=== PATIENT | male | born 1970 | race Caucasian/White ===

== ENCOUNTER 2017-08-14 11:33 | Emergency (ER) | payer OTHER ==
[~2017-08-14] VITALS: Ht 172.7 cm; Wt 95.3 kg
[2017-08-14 12:06] VITALS: BP 140/105
--- NOTE | 2017-08-14 15:02 | RADIOLOGY REPORT ---
EXAMINATION: XR WRIST, RIGHT CLINICAL INFORMATION: Right wrist injury. COMPARISON: None TECHNIQUE: PA, lateral, and oblique views of the right wrist. FINDINGS: No acute fracture or dislocation is seen. The carpal bones are normal anatomic alignment. No soft tissue abnormality is visible. IMPRESSION: No acute radiographic abnormality of the right wrist.
--- NOTE | 2017-08-14 15:15 | ED HAND/WRIST INJURY COMPLAINT ---
History of Present Illness General Chief Complaint: Hand or Wrist Injury Stated Complaint: RT WRIST PAIN Source: patient, old records Exam Limitations: no limitations Vital Signs & Intake/Output Vital Signs & Intake/Output Vital Signs Date Time Temp Pulse Resp B/P B/P Pulse O2 O2 Flow FiO2 Mean Ox Delivery Rate 08/14 1206 98.4 78 20 140/105 99 Room Air Allergies Uncoded Allergies: PCN (Intermediate, ANAPHYLAXSIS 08/14/17) Triage Note: C/O PAIN IN R WRIST, (LATERAL AREA) SINCE THIS AM, OCCURRED AT WORK WHILE USHING ON HEAVY BOXES, ALSO C/O R ULNAR AREA AND R 4RTH FINGER FEELING NUMB. Triage Nurses Notes Reviewed? yes Occurred: just prior to arrival Duration: hour(s): (4), intermittent, waxing and waning Timing: recent history Injury Environment: work Severity: moderate Severity Numbers: 5 Pain/Injury Location: Right: Wrist, Hand. Modifying Factors: Worsens With: movement, other (PALPATION). Associated Symptoms: none HPI: 47 YEAR OLD MALE PRESENTS FROM WORK S/P INJURING R WRIST WHILE PICKING UP AND MOVING BOXES. HE IS RIGHT HAND DOMINANT. THERE WAS NO FALL. HE HAS NOT TAKEN ANYTHING FOR HIS SYMPTOMS. HE REPORTS THAT THE ULNAR ASPECT OF HIS DORSAL R HAND AND 5TH FINGER "FEEL WEIRD/COLD". PAIN RAD INTO R FOREARM. NO ELBOW PAIN. NO HISTORY OF SIMILAR SYMPTOMS IN THE PAST. (Kin Lombardi) Past History Travel History Traveled to [place] past 21 day No Medical History Any Pertinent Medical History? see below for history Neurological: NONE EENT: NONE Cardiovascular: hypertension Respiratory: NONE Gastrointestinal: NONE Hepatic: NONE Renal: NONE Psychiatric: NONE Endocrine: NONE Surgical History Surgical History: none Psychosocial History What is your primary language Georgian Tobacco Use: Never used ETOH Use: occasional use Family History Hx Contributory? No (Kin Lombardi) Review of Systems Review of Systems Constitutional: Reports: see HPI. EENTM: Denies: no symptoms. Respiratory: Denies: see HPI. Cardiovascular: Denies: no symptoms. GI: Denies: no symptoms. Musculoskeletal: Reports: joint pain. Denies: back pain, neck pain. Skin: Denies: no symptoms. Neurological/Psychological: Reports: paresthesia. Hematologic/Endocrine: Denies: no symptoms. Immunologic/Allergic: Denies: no symptoms. All Other Systems: Reviewed and Negative (Kin Lombardi) Physical Exam Physical Exam General Appearance: well developed/nourished, no apparent distress, alert, awake , comfortable Head: atraumatic, normal appearance Eyes: Bilateral: PERRL, EOMI. Ears, Nose, Throat: hearing grossly normal Neck: normal inspection, supple, full range of motion Back: normal range of motion Shoulder Left: normal range of motion, normal inspection Shoulder Right: normal range of motion, normal inspection Elbow Right: normal range of motion, normal inspection Forearm Right: normal range of motion, normal inspection Wrist Right: normal range of motion, normal inspection, TTP OVER THE DORSAL DISTAL ASPECT OF RIGHT ULNA Hand Left: normal inspection, normal range of motion Hand Right: normal inspection, normal range of motion, 5/5 STRENGTH NOTED TO ALL FINGERS WRIST, NO WRIST DROP, NO OVERLYING ERYTHEMA Neurologic/Tendon: normal sensation Skin: intact, normal color (Kin Lombardi) Progress Differential Diagnosis: fracture, sprain, TENDINITIS, SPRAIN CONTUSION Plan of Care: Orders Procedure Date/time Status Durable Medical Equipment 08/14 1521 Active I D/W THE PT HIS XRAY RESULTS, BRACE APPLIED. I ADVISED CLOSE F/U WITH HIS PMD AND F/U WITH ORTHO. REST, ICE, TYLENOL MOTRIN. HE FEELS COMFROTABLE WITH PLAN, CLEARED FOR DC PATIENT: MADI LINDA PRESENT AGE: 47 PATIENT ACCOUNT NO: [id number] : 68 LOCATION: [facility] ORDERING PHYSICIAN: Latrell Ortiz DO (TBS) SERVICE DATE: 08/14/17 EXAM TYPE: RAD - XRY-WRIST COMPLETE-RIGHT EXAMINATION: XR WRIST, RIGHT CLINICAL INFORMATION: Right wrist injury. COMPARISON: None TECHNIQUE: PA, lateral, and oblique views of the right wrist. FINDINGS: No acute fracture or dislocation is seen. The carpal bones are normal anatomic alignment. No soft tissue abnormality is visible. IMPRESSION: No acute radiographic abnormality of the right wrist. DICTATED BY: Charbel Reynoso MD DATE/TIME DICTATED:08/14/171457 COMPLIANCE ANALYST:LEONIDAS DATE/TIME TRANSCRIBED:08/14/171457 CONFIDENTIAL, DO NOT COPY WITHOUT APPROPRIATE AUTHORIZATION. <Electronically signed in Other Vendor System> SIGNED BY: Charbel Reynoso MD [id number] Diagnostic Imaging: Viewed by Me: Radiology Read. Discussed w/RAD: Radiology Read. (Kin Lombardi) Departure Departure Time of Disposition: 1520 Disposition: HOME OR SELF CARE Condition: Stable Clinical Impression Primary Impression: Wrist sprain Referrals: Jonathon COBIAN,Marquis Domingo MD,Tate (PCP/Family) Additional Instructions: tylenol/motrin for pain. follow up with your pmd or orthopedist dr morrissey if symptoms persist. brace as discussed. 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 I have also reviewed all the pertinent lab results and diagnostic results. I agree with the findings and the plan of care as documented in the PA's/STEAM CLEANING MACHINE OPERATOR's documentation. [x] I have reviewed the ED Record and agree with the PA's/STEAM CLEANING MACHINE OPERATOR's documentation. [] Additions or exceptions (if any) to the PAs/STEAM CLEANING MACHINE OPERATOR's note and plan are summarized below: [] (Latrell Ortiz DO)
== END 2017-08-14 15:42 ==
LOC: ERH 11:33
DX: S63.501A Unspecified sprain of right wrist, initial encounter (principal); X50.0XXA Overexertion from strenuous movement or load, initial encounter; Y92.89 Other specified places as the place of occurrence of the external cause; Y93.89 Activity, other specified; M25.531 Pain in right wrist; R00.2 Palpitations; I10 Essential (primary) hypertension
CPT/HCPCS: 73110-RT